=== PATIENT | female | born 1985 | race African-American/Black ===

== ENCOUNTER 2021-05-08 11:43 | Inpatient (IN) ==
[2021-05-08] MEDS ORDERED: ENOXAPARIN 40 MG/0.4 ML SYRINGE SUBCUT SCH (14:00)
[2021-05-08] MEDS ORDERED: ZALEPLON 5 MG CAPSULE PO PRN (14:11)
[2021-05-08] MEDS ORDERED: NIFEdipine 10 MG CAPSULE PO SCH (16:00)
[2021-05-08 16:47] LABS: Bacteria,Urine Occasional /HPF (Few); RBC,Urine 8 /HPF (0-4); Squamous Epithelial Cell,Urine Occasional /HPF (0-10)
[2021-05-08 16:49] LABS: Blood, Urine Trace mg/dL (Negative); Glucose,Urine (UA) Negative (Negative); Ketones,Urine 15 mg/dL (Negative); Nitrite,Urine Negative (Negative); Protein,Urine Negative (Negative); Urine Appearance Clear (Clear); Urine Color Yellow (Yellow); Urine Specific Gravity > 1.030 (1.001-1.035)
[2021-05-08 16:50] LABS: Bilirubin,Urine Negative (Negative); Urine Urobilinogen 0.2 eU/dL (<2.0)
[2021-05-08 16:55] LABS: Barbiturates Screen,Urine Negative (Negative); Benzodiazepines Screen,Urine Negative (Negative); Cannabinoid Screen,Urine Negative (Negative); Opiate Screen,Urine Negative (Negative); Phencyclidine Screen,Urine Negative (Negative)
[2021-05-08] MEDS: NIFEdipine 10 MG CAPSULE PO SCH (20:22)
[2021-05-08] MEDS: PROGESTERONE VAG SCH (21:56)
[2021-05-09] MEDS: NIFEdipine 10 MG CAPSULE PO SCH ×7 (00:52→23:58)
[2021-05-09] MEDS: ENOXAPARIN 40 MG/0.4 ML SYRINGE SUBCUT SCH (08:28)
[2021-05-09] MEDS: PROGESTERONE VAG SCH (20:10)
[2021-05-10] MEDS: NIFEdipine 10 MG CAPSULE PO SCH ×6 (04:07→23:41)
[2021-05-10] MEDS: ENOXAPARIN 40 MG/0.4 ML SYRINGE SUBCUT SCH (08:52)
[2021-05-10] MEDS: ACETAMINOPHEN 325 MG TABLET PO PRN (19:37)
[2021-05-11] MEDS: NIFEdipine 10 MG CAPSULE PO SCH ×5 (04:04→20:55)
[2021-05-11] MEDS: ENOXAPARIN 40 MG/0.4 ML SYRINGE SUBCUT SCH (08:27)
[2021-05-11] MEDS: PROGESTERONE VAG SCH ×2 (21:04→21:05)
[2021-05-12] MEDS: NIFEdipine 10 MG CAPSULE PO SCH ×6 (00:12→19:53)
[2021-05-12] MEDS: ENOXAPARIN 40 MG/0.4 ML SYRINGE SUBCUT SCH (09:22)
[2021-05-12] MEDS: ACETAMINOPHEN 325 MG TABLET PO PRN ×2 (11:41→18:09)
[2021-05-12 14:38] LABS: Bilirubin,Urine Negative (Negative); Glucose,Urine (UA) Negative (Negative); Ketones,Urine Negative (Negative); Nitrite,Urine Negative (Negative); Protein,Urine Negative (Negative); Urine Appearance Clear (Clear); Urine Color Yellow (Yellow); Urine pH 6.5 (4.5-8.0)
[2021-05-12 14:39] LABS: Blood, Urine Trace mg/dL (Negative); Urine Urobilinogen 0.2 eU/dL (<2.0)
[2021-05-12 14:40] LABS: Basophils # 0.1 10*3/uL (0.0-0.2); Basophils % 0.7 % (0.0-0.8); Eosinophils # 0.3 10*3/uL (0.0-0.87); Eosinophils % 3.1 % (0.00-10.9); Hematocrit 34.7 VOL% (35.7-47.0); Hemoglobin 11.4 GM/DL (12.0-16.0); Immature Granulocytes % 0.8 %; Immature Granulocytes Absolute 0.07 #; Lymphocytes # 2.1 10*3/uL (1.4-4.0); Lymphocytes % 22.8 % (21.3-54.2); Mean Corpuscular HGB Conc 32.9 GM/DL (32-36); Mean Corpuscular Volume 89.9 FL (87-102); Mean Platelet Volume 11.7 FL (9.6-12.0); Monocytes % 8.1 % (1.7-12.7); Neutrophils % 64.5 % (38.7-73.9); Platelet Count 233 T/CUMM (130-400); Red Blood Count 3.86 MC/CUMM (3.8-5.5); Red Cell Distribution Width 14.5 % (9.3-17.3)
[2021-05-12 14:41] LABS: Bacteria,Urine Occasional /HPF (Few); Mucus,Urine Occasional /LPF (Occasional); RBC,Urine 2 /HPF (0-4); Squamous Epithelial Cell,Urine Occasional /HPF (0-10)
[2021-05-12] MEDS: PROGESTERONE VAG SCH (21:15)
[2021-05-13] MEDS: NIFEdipine 10 MG CAPSULE PO SCH ×6 (00:51→20:17)
[2021-05-13] MEDS: ENOXAPARIN 40 MG/0.4 ML SYRINGE SUBCUT SCH (09:11)
[2021-05-13] MEDS: BETAMETH SODIUM PHOS/ACETATE 30 MG/5 ML VIAL IM SCH (12:11)
[2021-05-13] MEDS: PROGESTERONE VAG SCH (21:03)
[2021-05-14] MEDS: NIFEdipine 10 MG CAPSULE PO SCH ×6 (00:10→19:04)
[2021-05-14] MEDS: ENOXAPARIN 40 MG/0.4 ML SYRINGE SUBCUT SCH (08:08)
[2021-05-14] MEDS: BETAMETH SODIUM PHOS/ACETATE 30 MG/5 ML VIAL IM SCH (12:00)
[2021-05-14 15:45] VITALS: BP 102/52
== END 2021-05-14 19:30 | disposition home or self-care (01) | DRG 833 ==
LOC: INTOOBSV 13:03 → N.OB 13:03 → N.LD 05-12 13:25 → N.OB 05-12 16:37
PROVIDERS: ADMIT Obstetrics & Gynecology; ATTEND Obstetrics & Gynecology

== ENCOUNTER 2021-08-05 12:40 | Inpatient (IN) ==
[2021-08-05] MEDS ORDERED: BETAMETH SODIUM PHOS/ACETATE 30 MG/5 ML VIAL IM ONE (12:46)
[2021-08-05] MEDS: ALUMINUM/MAGNES/SIMETH MAX STR 30 ML UDCUP PO PRN (14:28)
[2021-08-06] MEDS ORDERED: METHYLERGONOVINE 0.2 MG/1 ML AMP IM PRN (01:52)
[2021-08-06] MEDS ORDERED: ONDANSETRON 4 MG/2 ML VIAL IV PRN (01:52)
[2021-08-06] MEDS ORDERED: CARBOPROST TROMETHAMINE 250 MCG/ML AMP IM PRN (01:52)
[2021-08-06] MEDS ORDERED: OXYTOCIN/LR 20 UNIT/1,000 ML BAG IV ONE (01:52)
[2021-08-06] MEDS ORDERED: TRANEXAMIC ACID 1,000 MG in SODIUM CHLORIDE 0.9% 100 ML IV PRN (01:52)
[2021-08-06] MEDS ORDERED: ACETAMINOPHEN 325 MG TABLET PO PRN (01:52)
[2021-08-06] MEDS ORDERED: LACTATED RINGERS 250 ML IV ONE (01:52)
[2021-08-06] MEDS ORDERED: BUTORPHANOL 2 MG/ML VIAL IV PRN (01:52)
[2021-08-06] MEDS ORDERED: miSOPROStoL 200 MCG TABLET RECTAL PRN (01:52)
[2021-08-06] MEDS ORDERED: LACTATED RINGERS 500 ML IV PRN (01:52)
[2021-08-06] MEDS ORDERED: AMPICILLIN INJ 2,000 MG in SODIUM CHLORIDE 0.9% 100 ML IV ONE (01:55)
[2021-08-06] MEDS ORDERED: LACTATED RINGERS 1,000 ML IV SCH (02:00)
[2021-08-06] MEDS: ALUMINUM/MAGNES/SIMETH MAX STR 30 ML UDCUP PO PRN ×2 (02:12→08:06)
[2021-08-06 02:27] LABS: Basophils % 0.4 % (0.0-0.8); Hematocrit 30.6 VOL% (35.7-47.0); Hemoglobin 9.9 GM/DL (12.0-16.0); Immature Granulocytes % 4.8 %; Immature Granulocytes Absolute 0.41 #; Lymphocytes # 1.4 10*3/uL (1.4-4.0); Lymphocytes % 16.6 % (21.3-54.2); Mean Corpuscular HGB Conc 32.4 GM/DL (32-36); Monocytes % 11.8 % (1.7-12.7); NRBC # 0.13 10*3/uL; Neutrophils % 66.4 % (38.7-73.9); Platelet Count 190 T/CUMM (130-400); Red Blood Count 3.56 MC/CUMM (3.8-5.5); Red Cell Distribution Width 14.6 % (9.3-17.3); White Blood Count 8.5 T/CUMM (4-12)
[2021-08-06 02:51] LABS: INR 0.9
[2021-08-06 03:02] LABS: Partial Thromboplastin Time > 211.8 SECS (23.7-32.9)
[2021-08-06] MEDS: AMPICILLIN INJ 1,000 MG in SODIUM CHLORIDE 0.9% 100 ML IV SCH ×4 (06:36→22:25)
[2021-08-06] MEDS: MEPERIDINE 50 MG/1 ML VIAL IV PRN ×2 (15:22→20:35)
[2021-08-07] MEDS ORDERED: ONDANSETRON 4 MG/2 ML VIAL IV ONE (01:39)
[2021-08-07] MEDS ORDERED: ePHEDrine 50 MG/ML VIAL IV PRN (01:39)
[2021-08-07] MEDS ORDERED: LACTATED RINGERS 250 ML IV PRN (01:39)
[2021-08-07] MEDS ORDERED: diphenhydrAMINE 50 MG/1 ML VIAL IV PRN ×2 (01:39)
[2021-08-07] MEDS ORDERED: NALOXONE 0.4 MG/ML VIAL IV PRN (01:39)
[2021-08-07] MEDS ORDERED: PROMETHAZINE 25 MG/1 ML VIAL IM ONE (01:39)
[2021-08-07] MEDS ORDERED: hydrOXYzine HCL 25 MG/1 ML VIAL IM PRN (01:39)
[2021-08-07] MEDS ORDERED: CITRIC ACID/SODIUM CITRATE 30 ML UDCUP PO ONE (01:40)
[2021-08-07] MEDS ORDERED: FAMOTIDINE 20 MG/2 ML VIAL IV ONE (01:40)
[2021-08-07] MEDS ORDERED: fentaNYL 2 MCG/ROPIV 0.2% EPID 100 ML EPIDURAL SCH (02:00)
[2021-08-07] MEDS ORDERED: LACTATED RINGERS 1,000 ML IV SCH (02:00)
[2021-08-07] MEDS: AMPICILLIN INJ 1,000 MG in SODIUM CHLORIDE 0.9% 100 ML IV SCH (03:13)
[2021-08-07 05:32] LABS: Glucose,Urine (UA) Negative (Negative); Ketones,Urine Negative (Negative); Protein,Urine Negative (Negative); RBC,Urine <1 /HPF (0-4); Squamous Epithelial Cell,Urine Occasional /HPF (0-10); Urine Appearance Clear (Clear); Urine Color Yellow (Yellow); Urine Specific Gravity 1.015 (1.001-1.035)
[2021-08-07 05:33] LABS: Bilirubin,Urine Negative (Negative); Blood, Urine Negative (Negative); Nitrite,Urine Negative (Negative); Urine Urobilinogen 0.2 eU/dL (<2.0)
[2021-08-07] MEDS ORDERED: TRANEXAMIC ACID 1,000 MG/10 ML VIAL ONE (07:56)
[2021-08-07] MEDS ORDERED: miSOPROStoL 200 MCG TABLET ONE (07:56)
[2021-08-07] MEDS ORDERED: CARBOPROST TROMETHAMINE 250 MCG/ML AMP IM ONE (07:57)
[2021-08-07] MEDS ORDERED: SODIUM CHLORIDE 0.9% 0 ML IV ONE (07:57)
[2021-08-07] MEDS ORDERED: METHYLERGONOVINE 0.2 MG/1 ML AMP ONE (07:57)
[2021-08-07] MEDS ORDERED: OXYTOCIN/LR 20 UNIT/1,000 ML BAG IV ONE ×2 (07:59→08:30)
[2021-08-07] MEDS ORDERED: DIPH/TET/ACEL PERT BOOSTER VACCINE 0.5 ML VIAL IM ONE (08:30)
[2021-08-07] MEDS ORDERED: ACETAMINOPHEN 325 MG TABLET PO PRN (08:30)
[2021-08-07] MEDS ORDERED: BENZOCAINE 20%/MENTHOL 0.5% SPRAY 56 GM CAN TOP PRN (08:30)
[2021-08-07] MEDS ORDERED: ONDANSETRON 4 MG/2 ML VIAL IV PRN (08:30)
[2021-08-07] MEDS ORDERED: HYDROCORTISONE 2.5% RECTAL CREAM 30 GM TUBE TOP PRN (08:30)
[2021-08-07] MEDS ORDERED: BISACODYL 10 MG SUPP RECTAL PRN (08:30)
[2021-08-07] MEDS ORDERED: LANOLIN 50% CREAM 0.3 OZ TUBE TOP PRN (08:30)
[2021-08-07] MEDS ORDERED: oxyCODONE/ACETAMINOPHEN 5-325 MG TABLET PO PRN ×2 (08:30)
[2021-08-07] MEDS ORDERED: MEASLES/MUMPS/RUBELLA VACCINE 0.5 ML VIAL SUBCUT ONE (08:30)
[2021-08-07] MEDS ORDERED: WITCH HAZEL PADS 100/JAR TOP PRN (08:30)
[2021-08-07] MEDS ORDERED: RHO(D) IMMUNE GLOBULIN 300 MCG SYRINGE IM ONE (08:30)
[2021-08-07 08:42] LABS: Cord Venous Blood HCO3 22.6 MMOL/L; Cord Venous Blood PCO2 33.4 MMHG; Cord Venous Blood PO2 33.1
[2021-08-07] MEDS: IBUPROFEN 800 MG TABLET PO PRN ×2 (14:29→20:27)
[2021-08-07] MEDS: DOCUSATE SODIUM 100 MG CAPSULE PO SCH (20:25)
[2021-08-08] MEDS: IBUPROFEN 800 MG TABLET PO PRN ×2 (04:09→11:32)
[2021-08-08 05:40] LABS: Basophils # 0.1 10*3/uL (0.0-0.2); Basophils % 0.8 % (0.0-0.8); Eosinophils # 0.1 10*3/uL (0.0-0.87); Eosinophils % 1.7 % (0.00-10.9); Hematocrit 31.8 VOL% (35.7-47.0); Hemoglobin 10.2 GM/DL (12.0-16.0); Immature Granulocytes % 1.4 %; Immature Granulocytes Absolute 0.12 #; Lymphocytes # 2.1 10*3/uL (1.4-4.0); Lymphocytes % 25.4 % (21.3-54.2); Mean Corpuscular HGB Conc 32.1 GM/DL (32-36); Mean Corpuscular Volume 86.6 FL (87-102); Mean Platelet Volume 13.3 FL (9.6-12.0); Monocytes % 11.7 % (1.7-12.7); NRBC # 0.02 10*3/uL; Platelet Count 188 T/CUMM (130-400); Red Blood Count 3.67 MC/CUMM (3.8-5.5); Red Cell Distribution Width 14.7 % (9.3-17.3); White Blood Count 8.4 T/CUMM (4-12)
[2021-08-08 06:38] LABS: Platelet Estimate Adequate
[2021-08-08] MEDS: DOCUSATE SODIUM 100 MG CAPSULE PO SCH ×2 (09:20→20:47)
[2021-08-09 07:32] VITALS: BP 107/58
[2021-08-09] MEDS ORDERED: MULTIVITAMIN (PRENATAL) TABLET PO SCH (09:00)
[2021-08-09] MEDS: DOCUSATE SODIUM 100 MG CAPSULE PO SCH (10:14)
== END 2021-08-09 13:36 | disposition home or self-care (01) | DRG 768 ==
LOC: N.LD 12:40 → N.OB 08-07 11:39
PROVIDERS: ADMIT Obstetrics & Gynecology; ATTEND Obstetrics & Gynecology